=== PATIENT | female | born 1955 | race American Indian/Alaskan Native ===

== ENCOUNTER 2016-07-24 12:32 | Outpatient (CLI) | payer OTHER ==
--- NOTE | 2016-07-25 13:35 | Vascular Lab Report ---
LOWER EXTREMITY VENOUS DUPLEX: REASON FOR EXAM: Edema. COMMENTS ON THE RIGHT: Deep venous thrombosis is noted in the femoral vein, deep femoral vein extending into the common femoral vein and distal external iliac vein. Also deep thrombus is noted in the peroneal vein extending into the popliteal vein. The remaining veins visualized are freely compressible without evidence of internal echogenicity. Spontaneous and phasic flow is present proximally. COMMENTS ON THE LEFT: Deep venous thrombosis is noted in the femoral vein, deep femoral vein extending into the common femoral and external iliac veins. The remaining veins visualized are freely compressible without evidence of internal echogenicity. Spontaneous and phasic flow is absent proximally. IMPRESSION: Bilateral deep venous thromboses
== END 2016-07-24 12:33 | disposition home or self-care (01) ==
LOC: VAS 12:32
PROVIDERS: ATTEND Internal Medicine Hematology & Oncology
DX: I82.413 Acute embolism and thrombosis of femoral vein, bilateral (principal); C53.1 Malignant neoplasm of exocervix; R60.9 Edema, unspecified
CPT/HCPCS: 93970